=== PATIENT | female | born 1970 | race Caucasian/White ===

== ENCOUNTER → 2016-12-23 16:49 | Outpatient (CLI) | payer OTHER ==
[2014-09-09 11:13] VITALS: BMI 35.4
[~2016-12-23 16:49] MED LIST: ADVAIR 250/501 DISK INH; GLUCOPHAGE1000 MG PO; GLUCOTROL 5 MG T5 MG PO; HYDROCODONE-APA1 TAB PO; KLOR-CON 1010 MEQ PO; MIRALAX17 GM PO; PREVACID30 MG PO; PROVENTIL HFA6.7 GM INH; VALIUM10 MG PO
[2016-12-23 17:19] LABS: UDS - AMPHET NEGATIVE QUAL (NEGATIVE); UDS - BARB NEGATIVE QUAL (NEGATIVE); UDS - BENZO NEGATIVE QUAL (NEGATIVE); UDS - COCAINE NEGATIVE QUAL (NEGATIVE); UDS - METH NEGATIVE QUAL (NEGATIVE); UDS - OPIATE NEGATIVE QUAL (NEGATIVE); UDS - PCP NEGATIVE QUAL (NEGATIVE); UDS - THC NEGATIVE QUAL (NEGATIVE)
== END | disposition home or self-care (01) ==
LOC: D.LAB 16:49
PROVIDERS: Emergency Medicine
DX: F11.20 Opioid dependence, uncomplicated (principal)

== ENCOUNTER → 2017-09-29 16:57 | Outpatient (CLI) | payer MEDICAID ==
[2014-09-09 11:13] VITALS: BMI 35.4
[2017-09-29 17:30] LABS: UDS - AMPHET NEGATIVE QUAL (NEGATIVE); UDS - BARB NEGATIVE QUAL (NEGATIVE); UDS - BENZO NEGATIVE QUAL (NEGATIVE); UDS - COCAINE NEGATIVE QUAL (NEGATIVE); UDS - OPIATE NEGATIVE QUAL (NEGATIVE); UDS - PCP NEGATIVE QUAL (NEGATIVE); UDS - THC NEGATIVE QUAL (NEGATIVE)
== END | disposition home or self-care (01) ==
LOC: D.LAB 16:57
PROVIDERS: Emergency Medicine
DX: F11.20 Opioid dependence, uncomplicated (principal)

== ENCOUNTER 2019-09-17 19:00 | Emergency (ER) | payer SELFPAY ==
[~2019-09-17] VITALS: Ht 149.9 cm; Wt 75.5 kg
[2019-09-17 19:05] VITALS: Ht 149.9 cm; Wt 75.5 kg
[2019-09-17 19:54] LABS: INR 1.15 (0.85-1.17); PROTIME 14.2 SECONDS (11.6-15.0)
[2019-09-17 19:55] LABS: APTT 36.2 SECONDS (22.8-39.4)
[2019-09-17 19:58] LABS: CALC OSMOLALITY 277 mosm/kg (275-300); CALCIUM 8.3 mg/dL (8.5-10.1); CARBON DIOXIDE 30.3 mmol/L (21.0-32.0); CHLORIDE - SERUM 98 mmol/L (98-107); CREATININE - SERUM 0.8 mg/dL (0.6-1.3); SODIUM 133 mmol/L (136-145); UREA NITROGEN 10 mg/dL (7-18); eGFR NON AFRICAN AMERICAN 81 mL/min (90-120)
[2019-09-17 19:59] LABS: GLUCOSE 340 mg/dL (74-106)
[2019-09-17 20:10] LABS: EOSINOPHILS 1.4 % (0-7); HEMATOCRIT 38.4 % (36.0-48.0); HEMOGLOBIN 11.9 g/dL (12-16); IMMATURE GRANULOCYTES 0.1 % (0-5); LYMPHOCYTES 24.5 % (15-50); MCH 25.5 pg (26.0-34.0); MCV 82.4 fL (80.0-100.0); MEAN PLATELET VOLUME 11.2 fL (7.4-10.4); PLATELET COUNT 297 10x3/uL (130-400); RBC 4.66 10x6/uL (4.00-5.40); RDW 16.4 % (11.5-14.5); WBC 7.8 10x3/uL (4.8-10.8)
[2019-09-17 20:21] LABS: APPEARANCE CLEAR (CLEAR); BILIRUBIN NEGATIVE (NEGATIVE); COLOR YELLOW (YELLOW); GLUCOSE 1000 mg/dL (NEGATIVE); KETONE NEGATIVE (NEGATIVE); NITRITE NEGATIVE (NEGATIVE); PROTEIN NEGATIVE (NEGATIVE); SPECIFIC GRAVITY 1.015 (1.005-1.020); UROBILINOGEN NORMAL (NORMAL)
[2019-09-17 20:22] LABS: BACTERIA FEW /hpf (NEGATIVE); RED CELLS - URINE 0-5 /hpf (0-5); UDS - AMPHET NEGATIVE QUAL (NEGATIVE); UDS - BARB NEGATIVE QUAL (NEGATIVE); UDS - BENZO POSITIVE QUAL (NEGATIVE); UDS - COCAINE NEGATIVE QUAL (NEGATIVE); UDS - OPIATE NEGATIVE QUAL (NEGATIVE); UDS - PCP NEGATIVE QUAL (NEGATIVE); UDS - THC NEGATIVE QUAL (NEGATIVE); WHITE CELLS - URINE OCC /hpf (NEGATIVE)
[2019-09-17 20:23] LABS: ALBUMIN 3.1 g/dL (3.4-5.0); ALKALINE PHOSPHATASE 89 U/L (46-116); ALT (SGPT) 23 U/L (10-68); BILIRUBIN - TOTAL 0.33 mg/dL (0.2-1.3); CREATINE KINASE 57 UL (21-215); MAGNESIUM - SERUM 1.7 mg/dL (1.8-2.4); PROTEIN - SERUM 7.3 g/dL (6.4-8.2); THYROID STIMULATING HORMONE 2.36 uIU/mL (0.36-3.74); TROPONIN-I < 0.017 ng/mL (0.000-0.060)
[2019-09-17 21:44] VITALS: BP 112/66
== END 2019-09-17 21:44 | disposition left against medical advice (07) ==
LOC: D.ER 19:00
PROVIDERS: Family Medicine
DX: R42 Dizziness and giddiness (principal); R40.4 Transient alteration of awareness

== ENCOUNTER 2020-01-25 11:52 | Observation (INO) | payer MEDICAID ==
[~2020-01-25] VITALS: Ht 149.9 cm; Wt 75.0 kg
[2020-01-25 12:26] LABS: BASOPHILS 0.8 % (0-2); EOSINOPHILS 2.1 % (0-7); HEMATOCRIT 36.9 % (36.0-48.0); HEMOGLOBIN 11.5 g/dL (12-16); IMMATURE GRANULOCYTES 0.2 % (0-5); LYMPHOCYTES 36.3 % (15-50); MCH 24.1 pg (26.0-34.0); MCHC 31.2 g/dL (31.0-37.0); MCV 77.2 fL (80.0-100.0); MEAN PLATELET VOLUME 9.6 fL (7.4-10.4); NEUTROPHILS 52.6 % (40-80); PLATELET COUNT 292 10x3/uL (130-400); RBC 4.78 10x6/uL (4.00-5.40); RDW 16.5 % (11.5-14.5); WBC 5.2 10x3/uL (4.8-10.8)
[2020-01-25 12:35] LABS: APTT 26.7 SECONDS (22.8-39.4); CALC OSMOLALITY 278 mosm/kg (275-300); CALCIUM 9.1 mg/dL (8.5-10.1); CARBON DIOXIDE 28.6 mmol/L (21.0-32.0); CHLORIDE - SERUM 101 mmol/L (98-107); CREATININE - SERUM 0.7 mg/dL (0.6-1.3); INR 0.99 (0.85-1.17); POTASSIUM - SERUM 3.8 mmol/L (3.5-5.1); PROTIME 13.1 SECONDS (11.6-15.0); SODIUM 137 mmol/L (136-145); UREA NITROGEN 9 mg/dL (7-18); eGFR NON AFRICAN AMERICAN > 90 mL/min (90-120)
[2020-01-25 12:37] LABS: GLUCOSE 212 mg/dL (74-106)
--- NOTE | 2020-01-25 12:45 | NUR ---
RESP STATES AFTER RESULTING ABG'S, THE O2 WAS INCREASED TO 3 LPM/NC.
[2020-01-25 12:50] LABS: ALBUMIN 3.3 g/dL (3.4-5.0); ALKALINE PHOSPHATASE 85 U/L (30-120); ALT (SGPT) 19 U/L (10-68); BILIRUBIN - TOTAL 0.38 mg/dL (0.2-1.3); CKMB 0.9 U/L (0.0-3.6); CREATINE KINASE 37 UL (21-215); MAGNESIUM - SERUM 1.6 mg/dL (1.8-2.4); THYROID STIMULATING HORMONE 2.17 uIU/mL (0.36-3.74)
[2020-01-25 12:51] LABS: TROPONIN-I < 0.017 ng/mL (0.000-0.060)
[2020-01-25 14:35] VITALS: BP 139/76
--- NOTE | 2020-01-25 14:54 | NUR ---
ATTEMPTED TO CALL REPORT X3 , WAS IMMEDIATELY PLACED ON HOLD.
--- NOTE | 2020-01-25 15:14 | NUR ---
ATTEMPTED TO CALL REPORT, I WAS PLACED ON HOLD.
[2020-01-25 16:04] VITALS: BP 133/72; Ht 149.9 cm; Wt 75.0 kg
[2020-01-25 16:39] VITALS: BP 133/72
--- NOTE | 2020-01-25 19:10 | NUR ---
PATIENT RESTING WITH EYES CLOSED WHEN ENTERING THE ROOM. PATIENT AROUSES TO VERBAL STIMULI AND NAME BEING CALLED. PATIENT ANSWERS QUESTIONS APPROPRIATELY. INCLUDING DETAILED INFORMATION. PATIENT STATES "I FEEL BETTER NOW I AM JUST SO SLEEPY." WHEN CONVERSATION ENDS, PATIENT RETURNS TO SLEEP. CURRENTLY WEARING NASAL CANNULA WITH 2 L O2. DENIES PAIN WHEN ASKED. HAS RIGHT AC IV THAT IS SALINE LOCKED. FLUSHED TO CHECK PATENTCY. DENIES FURTHER NEEDS AT THIS TIME.C CPOC.
[2020-01-25 19:46] VITALS: BP 123/66
--- NOTE | 2020-01-25 20:30 | NUR ---
AROUSES WHEN NAME IS CALLED. ANSWERS QUESTIONS APPROPRIATELY. REMAINS ON 2 L NC. LUNG SOUNDS WITH INSPIRATORY AND EXPIRATORY WHEEZES. ENCOURAGED TO COUGH AND DEEP BREATHE. PATIENT VERBALIZES UNDERSTANDING BUT DOES NOT COMPLETE TASK. GOES BACK TO SLEEP. AWAKEN PATIENT AGAIN AND SHE COUGHS AND DEEP BREATHS PER REQUEST, BUT STATES SHE IS TIRED AND WOULD LIKE TO GO BACK TO SLEEP AT THIS TIME. CLOSE TO NURSES STATION TO MONITOR, DOOR OPEN. CPOC.
--- NOTE | 2020-01-25 21:07 | NUR ---
FSBS 193.
--- NOTE | 2020-01-26 00:02 | NUR ---
PATIENT AWAKE PLAYING ON CELL PHONE AT THIS TIME. DENIES NEEDS. CPOC.
[2020-01-26 01:20] VITALS: BP 137/82
--- NOTE | 2020-01-26 02:27 | NUR ---
PATIENT MORE AROUSABLE THAN EARLIER IN THE SHIFT. PATIENT REMAINS ALERT AND ORIENTED, ANSWERING QUESTIONS APPROPRIATELY. NOT FALLING ASLEEP DURING CONVERSATION. PATIENT STATES SHE IS STILL TIRED, BUT THE DROWSINESS IS DEACREASING. PATIENT REMAINS ON 2L NASAL CANNULA. DENIES FURTHER NEEDS AT THIS TIME. CALL LIGHT IN REACH. CPOC.
--- NOTE | 2020-01-26 02:50 | NUR ---
I have reviewed this patient and I concur with the Shift Assessment completed by the Licensed Practical Nurse today this shift.
--- NOTE | 2020-01-26 03:01 | NUR ---
PATIENT IS UP AMBULATING IN HALLWAY. PATIENT STATES "I AM JUST LETTING YOU KNOW I FEEL SO MUCH BETTER, I AM NOT SLEEPY I WAS. I FINALLY FEEL NORMAL." PATIENT AND THIS NURSE TALKED FOR SEVERAL MINUTES. PATIENT IS LUCID. SPEAKS WITH THIS NURSE ABOUT HISTORY. NEURO CHECKS PERFORMED. HAND SHALLOT CLEANER ARE STONG AND EQUAL. GAIT AND AMBULATION REQUIRES NO ASSISTANCE. PATIENT MOUTH/FACE HAS SLIGHT DROOP TO THE RIGHT SIDE, BUT PATIENT STATES "THIS IS ALL NORMAL, ITS BEEN THIS WAY MY WHOLE LIFE. THIS IS NOT NEW FOR ME." PATIENT STATES SHE IS CRAVING A CIGARETTE. PROVIDED EDUCATION ON SMOKING CESSATION. OFFERED SMOKING CESSATION HOTLINE AND RESOURCES, PATIENT ADAMANTALY DENIED. PATIENT SPOKE WITH THIS NURSE THAT SHE KNOWS SHE IS NON COMPLIANT WITH DIABETES AND HTN MEDICATION. PATIENT STATES "I HELP OTHER PEOPLE, BUT I DON'T DO WHAT I AM SUPPOSED TO." PATIENT LISTENS AND IS POLITE TO EDUCATION, BUT NOT RECEPTIVE TO TEACHING. PATIENT RETURNS TO ROOM WITH NO PROBLEMS. CPOC.
--- NOTE | 2020-01-26 03:12 | NUR ---
PATIENT CAME BACK OUT TO NURSES STATION AND STATES THAT SHE WILL STAY THROUGH THE NIGHT BUT WANTS TO BE DDISCHARGED SOON POSSIBLE IN THE MORNING AND THAT SHE WILL EITHER BE DISCHARGED OR LEAVE ON HER OWN TERMS. PATIENT NOT RUDE AT ALL WHEN SAYING THIS BUT MADE IT VERY CLEAR TO THIS NURSE THAT SHE NOW FEELS BETTER AND THAT SHE HAS OTHER PRIORITIES OUTSIDE OF HOSPITAL THAT NEEDS TO BE ATTENDED TO. SPOKE WITH PATIENT ABOUT NEEDING TO WAIT AND TALK TO PHYSICIANS AND ADVISED PATIENT TO PLEASE LET THE DOCTORS ASSESS AND LET CONSULTATIONS FOLLOW UP ON PATIENT. PATIENT STATES THAT SHE DOES NOT WANT THE PULMONOLGIST TO COME THROUGH, THAT SHE IS NOT TRYING TO BE RUDE, BUT THAT SHE IS BACK TO HER NORMAL SELF AND NEEDS TO GO HOME. ONCE AGAIN, PATIENT IS KIND AND LISTENS TO TEACHING BUT IS NOT RECEPTIVE. PATIENT DID AGREE TO ALLOW THIS NURSE TO PLACE MANAGER SUPPLY ON AND MONITOR HEART RHYTHM WHILE IN PATIENT. REFUSES SCD'S. FLUSHED RIGHT HAND IV, REMAINS PATENT. CPOC.
[2020-01-26 05:12] VITALS: BP 151/65
[2020-01-26 05:18] LABS: BASOPHILS 0.6 % (0-2); EOSINOPHILS 1.4 % (0-7); HEMATOCRIT 33.4 % (36.0-48.0); HEMOGLOBIN 10.2 g/dL (12-16); IMMATURE GRANULOCYTES 0.2 % (0-5); LYMPHOCYTES 34.9 % (15-50); MCH 23.8 pg (26.0-34.0); MCHC 30.5 g/dL (31.0-37.0); MEAN PLATELET VOLUME 10.3 fL (7.4-10.4); NEUTROPHILS 53.9 % (40-80); PLATELET COUNT 286 10x3/uL (130-400); RBC 4.28 10x6/uL (4.00-5.40); RDW 16.9 % (11.5-14.5); WBC 6.4 10x3/uL (4.8-10.8)
[2020-01-26 05:36] LABS: ALBUMIN 2.6 g/dL (3.4-5.0); ALKALINE PHOSPHATASE 61 U/L (30-120); ALT (SGPT) 14 U/L (10-68); BILIRUBIN - TOTAL 0.28 mg/dL (0.2-1.3); CALC OSMOLALITY 280 mosm/kg (275-300); CALCIUM 8.3 mg/dL (8.5-10.1); CARBON DIOXIDE 27.9 mmol/L (21.0-32.0); CHLORIDE - SERUM 103 mmol/L (98-107); CREATININE - SERUM 0.7 mg/dL (0.6-1.3); GLUCOSE 198 mg/dL (74-106); POTASSIUM - SERUM 3.9 mmol/L (3.5-5.1); SODIUM 138 mmol/L (136-145); UREA NITROGEN 11 mg/dL (7-18); eGFR NON AFRICAN AMERICAN > 90 mL/min (90-120)
--- NOTE | 2020-01-26 06:25 | NUR ---
PATIENT AGREED TO TAKE MAGNESIUM WITH BREAKFAST
[2020-01-26 08:06] VITALS: BP 136/62
--- NOTE | 2020-01-26 09:00 | NUR ---
ASSESSMENT PER FLOW SHEET. PT IS WITHOUT DISTRESS.CALL LIGHT IN REACH
[2020-01-26 11:54] LABS: % SATURATION 6 % (15-55); IRON 22 ug/dl (35-150); TOTAL IRON BIND CAPACITY 356 ug/dl (260-445); UNSAT IRON BIND CAPACITY 334 ug/dl (150-375)
[2020-01-26 12:34] VITALS: BP 136/46
--- NOTE | 2020-01-26 12:36 | NUR ---
IV DCD WITH CATH TIP INTACT. DISCHARGE INSTRUCTIONS,STATES UNDERSTANDING. LEFT UNIT VIA AMBULATORY FOR TRANSPORT HOME. PATIENT REFUSED WHEELCHAIR
== END 2020-01-26 12:37 | disposition home or self-care (01) ==
LOC: D.ER 11:52 → D.MS 13:43 → OBSVTIME 13:45 → D.MS 01-26 12:37
PROVIDERS: Family Medicine; ADMIT Internal Medicine Nephrology; ATTEND Internal Medicine Nephrology
DX: R47.1 Dysarthria and anarthria (principal); E83.42 Hypomagnesemia; D50.9 Iron deficiency anemia, unspecified; I10 Essential (primary) hypertension; E11.9 Type 2 diabetes mellitus without complications; R26.9 Unspecified abnormalities of gait and mobility; E11.65 Type 2 diabetes mellitus with hyperglycemia; F17.203 Nicotine dependence unspecified, with withdrawal; J44.1 Chronic obstructive pulmonary disease with (acute) exacerbation; R79.9 Abnormal finding of blood chemistry, unspecified

== ENCOUNTER 2020-03-19 16:04 | Emergency (ER) | payer MEDICAID ==
[~2020-03-19] VITALS: Ht 149.9 cm; Wt 75.0 kg
[2020-03-19 16:48] LABS: BASOPHILS 0.6 % (0-2); CALC OSMOLALITY 274 mosm/kg (275-300); CALCIUM 9.2 mg/dL (8.5-10.1); CARBON DIOXIDE 27.8 mmol/L (21.0-32.0); CHLORIDE - SERUM 97 mmol/L (98-107); CREATININE - SERUM 0.8 mg/dL (0.6-1.3); EOSINOPHILS 0.4 % (0-7); HEMATOCRIT 37.5 % (36.0-48.0); HEMOGLOBIN 11.6 g/dL (12-16); IMMATURE GRANULOCYTES 0.3 % (0-5); LYMPHOCYTES 15.5 % (15-50); MCH 24.6 pg (26.0-34.0); MCHC 30.9 g/dL (31.0-37.0); MCV 79.4 fL (80.0-100.0); MEAN PLATELET VOLUME 10.2 fL (7.4-10.4); MONOCYTES 5.6 % (2-11); NEUTROPHILS 77.6 % (40-80); PLATELET COUNT 325 10x3/uL (130-400); POTASSIUM - SERUM 3.5 mmol/L (3.5-5.1); RBC 4.72 10x6/uL (4.00-5.40); RDW 15.7 % (11.5-14.5); SODIUM 132 mmol/L (136-145); UREA NITROGEN 8 mg/dL (7-18); WBC 9.3 10x3/uL (4.8-10.8); eGFR NON AFRICAN AMERICAN 81 mL/min (90-120)
[2020-03-19 16:49] LABS: APTT 25.9 SECONDS (22.8-39.4); INR 0.96 (0.85-1.17); PROTIME 12.8 SECONDS (11.6-15.0)
[2020-03-19 16:54] LABS: GLUCOSE 316 mg/dL (74-106)
[2020-03-19 16:57] VITALS: Ht 149.9 cm; Wt 75.0 kg
[2020-03-19] MEDS ORDERED: BAYER CHEWABLE81 MG PO (17:00)
[2020-03-19] MEDS ORDERED: BUPRENORPHINE HC8 MG SL (17:00)
[2020-03-19 17:05] LABS: ALBUMIN 3.4 g/dL (3.4-5.0); ALKALINE PHOSPHATASE 88 U/L (30-120); ALT (SGPT) 31 U/L (10-68); BILIRUBIN - TOTAL 0.29 mg/dL (0.2-1.3); CKMB 0.4 U/L (0.0-3.6); CREATINE KINASE 40 UL (21-215); MAGNESIUM - SERUM 1.4 mg/dL (1.8-2.4); PROTEIN - SERUM 7.6 g/dL (6.4-8.2); THYROID STIMULATING HORMONE 1.19 uIU/mL (0.36-3.74); TROPONIN-I < 0.017 ng/mL (0.000-0.060)
[2020-03-19 19:42] LABS: BILIRUBIN NEGATIVE (NEGATIVE); GLUCOSE 1000 mg/dL (NEGATIVE); KETONE NEGATIVE (NEGATIVE); NITRITE NEGATIVE (NEGATIVE); SPECIFIC GRAVITY 1.005 (1.005-1.020); UROBILINOGEN NORMAL (NORMAL)
[2020-03-19 20:50] VITALS: BP 151/84
== END 2020-03-19 20:50 | disposition home or self-care (01) ==
LOC: D.ER 16:04
PROVIDERS: Family Medicine
DX: E11.65 Type 2 diabetes mellitus with hyperglycemia (principal); Z91.11 Patient's noncompliance with dietary regimen; Z91.14 Patient's other noncompliance with medication regimen; R53.1 Weakness; Z86.73 Personal history of transient ischemic attack (TIA), and cerebral infarction without residual deficits; E11.9 Type 2 diabetes mellitus without complications; I10 Essential (primary) hypertension; J44.9 Chronic obstructive pulmonary disease, unspecified; K21.9 Gastro-esophageal reflux disease without esophagitis; Z72.0 Tobacco use